=== PATIENT | female | born 1980 | race African-American/Black ===

== ENCOUNTER 2018-05-15 15:19 | Emergency (ER) | payer MEDICAID ==
[~2018-05-15] VITALS: Ht 162.6 cm; Wt 113.4 kg
[2018-05-15 15:53] LABS: Basophils # (auto) 0 uL; Basophils % (auto) 0.3 % (0.0-2.0); Eosinophils # (auto) 0.1 uL; Eosinophils % (auto) 0.4 % (0.0-7.0); Hemoglobin 12.6 g/dL (12.2-16.2); Lymphocytes # (auto) 1.8 uL; Lymphocytes % (auto) 15.8 % (10.0-50.0); Mean Corpuscular Hemoglobin 28.8 pg (28.0-32.0); Mean Corpuscular Hgb Conc. 33.1 g/dL (32.0-36.0); Monocytes # (auto) 0.6 uL; Neutrophils # (auto) 8.8 uL; Neutrophils % (auto) 78.5 % (37.0-80.0); Platelet Count (auto) 286 10^3/uL (140-450); Red Blood Cells 4.36 10^6/uL (4.0-5.20); Red Cell Distribution Width 13.6 % (11.8-14.3); White Blood Cell 11.3 10^3/uL (4.4-10.8)
[2018-05-15 16:07] LABS: Anion Gap 10 (5-15); Blood Urea Nitrogen 8 mg/dL (7-18); Carbon Dioxide 24 mmol/L (21-32); Chloride 110 mmol/L (98-107); Glucose 102 mg/dL (74-106); Potassium 3.6 mmol/L (3.5-5.1); Sodium 144 mmol/L (136-145)
[2018-05-15 16:08] LABS: Alanine Aminotransferase 20 U/L (13-56); Albumin 2.8 g/dL (3.4-5.0); Aspartate Aminotransferase 13 U/L (15-37); BUN/Creatinine Ratio 9.1; Blood Alcohol < 3.0 mg/dL (0-5); Calcium 8.1 mg/dL (8.5-10.1); GFR African American 94 mL/min; GFR Non-African American 77 mL/min
[2018-05-15 16:10] LABS: Alkaline Phosphatase 105 U/L (45-117); Bilirubin, Total 0.1 mg/dL (0.2-1.0)
[2018-05-15 16:22] LABS: Acetaminophen < 2.0 ug/mL (10-30)
[2018-05-15 16:58] LABS: Urine Bacteria NONE SEEN /hpf (None Seen); Urine Blood 3+ /uL (Negative); Urine Specific Gravity 1.027 (1.001-1.035); Urine WBC 9 /hpf (0 - 5)
[2018-05-15] MEDS ORDERED: LORazepam 2MG/ML-1ML VIAL IV ONE (17:15)
[2018-05-15] MEDS ORDERED: LORazepam 0.5 MG TAB PO ONE (17:15)
[2018-05-15] MEDS ORDERED: diphenhdrAMINE HCL 12.5 MG/5 ML UD PO ONE (17:15)
[2018-05-15 17:59] LABS: Alcohol, Urine < 3.0 mg/dL (0-5); Amphetamine Screen, Urine NEGATIVE (NEGATIVE); Barbiturate Scree,Urine NEGATIVE (NEGATIVE); Benzodiazephine Screen, Urine POSITIVE (NEGATIVE); Cannabinoid Screen, Urine NEGATIVE (NEGATIVE); Cocaine Screen, Urine NEGATIVE (NEGATIVE); Opiate Scree,Urine NEGATIVE (NEGATIVE); Phencyclidine Screen, Urine NEGATIVE (NEGATIVE)
[2018-05-16] MEDS ORDERED: OLANZapine 5 MG TAB PO ONE (03:15)
[2018-05-16 13:32] VITALS: BP 118/63
== END 2018-05-16 11:18 | disposition short-term general hospital (02) ==
LOC: EDBD 15:19 → ER 15:19
DX: F31.9 Bipolar disorder, unspecified (principal); R45.851 Suicidal ideations; F41.9 Anxiety disorder, unspecified; F20.9 Schizophrenia, unspecified
CPT/HCPCS: 36415; 80053; 80307; 80320; 80329; 81001; 85025

== ENCOUNTER 2021-09-20 07:40 | Emergency (ER) | payer MEDICAID ==
[~2021-09-20] VITALS: Ht 167.6 cm; Wt 90.7 kg
[2021-09-20 10:12] VITALS: BP 146/92
[2021-09-20] MEDS ORDERED: ONDANSETRON ODT 4 MG TAB PO ONE (10:45)
[2021-09-20] MEDS ORDERED: ACETAMINOPHEN/CODEINE#3 (300/30mg) TAB PO ONE (10:45)
== END 2021-09-20 11:16 | disposition home or self-care (01) ==
LOC: ER 07:40
DX: S16.1XXA Strain of muscle, fascia and tendon at neck level, initial encounter (principal); S00.03XA Contusion of scalp, initial encounter; Z88.0 Allergy status to penicillin; W10.8XXA Fall (on) (from) other stairs and steps, initial encounter; Y93.89 Activity, other specified; Y92.89 Other specified places as the place of occurrence of the external cause; Y99.8 Other external cause status
CPT/HCPCS: 70450; 72125; 99284; Q0162